=== PATIENT | female | born 1955 | race Caucasian/White ===

== ENCOUNTER 2019-07-14 20:12 | Emergency (ER) | payer OTHER ==
--- NOTE | 2019-07-14 20:45 | EDM.PDOC ---
ED HPI GENERAL MEDICAL PROBLEM - General Chief Complaint: Gastrointestinal Problem Stated Complaint: RECTAL ISSUE Time Seen by Provider: 07/14/19 20:45 Source of Information: Reports: Patient History Limitations: Reports: No Limitations - History of Present Illness INITIAL COMMENTS - FREE TEXT/NARRATIVE: pt arrived stating that she is having marked rectal spasm. She is feeling pressure and feeling like she has a mass. She is having incontinent stool. She has incontinence pads on at this time. Onset: Today, Other ( this started this am and some of the rectal spasms have been very severe. She has not had any fabiana blood. ) Duration: Hour(s): Location: Reports: Other (pt is having marked rectal pressure. ) Associated Symptoms: Reports: No Other Symptoms - Related Data Allergies Allergy/AdvReac Type Severity Reaction Status Date / Time codeine Allergy Cannot Verified 08/08/13 14:11 Remember erythromycin base Allergy Cannot Verified 08/08/13 14:11 [Erythromycin Base] Remember lisinopril Allergy Cannot Verified 08/08/13 14:11 Remember Home Meds: Home Meds Aspirin Ec 81mg Tablet, Take 1 Tab By Mouth One Time A Day 81 mg PO DAILY [History] Diclofonac 1% Topical, Apply 4 G Topically Four Times A Day 1 dose TOP ASDIRECTED 08/08/13 [History] Famotidine, 20mg, Tablet, Take 20 Mg By Mouth Two Times A Day 20 mg PO DAILY [History] Loratadine 10 Mg Tablet, Take 1 Tab By Mouth One Time A Day 10 mg PO DAILY 08/08 [History] Pirbutorol 200mcg/Inh Inhaler, Inhale 2 Puffs Into The Lungs 4 Times A Day As Needed 1 puff IN ASDIRECTED 08/08/13 [History] Selenium Sulfide 1% Lotn, Apply Topically One Time A Day 1 dose TOP ASDIRECTED 08/08/13 [History] Singulair 10 Mg Tablet, Take One Tablet By Mouth Every Night At Bedtime 1 puff IN ASDIRECTED 08/08/13 [History] Triamcinolone Acetonide 0.1% Cream, Apply To Affected Areas As Directed 1 dose TOP ASDIRECTED 08/08/13 [History] Chlorthalidone 25 mg PO DAILY 07/14/19 [History] Cholecalciferol (Vitamin D3) [Vitamin D] 5,000 unit PO DAILY 07/14/19 [History] Fish Oil/[place]-3 Fatty Acids [Fish Oil 1,000 MG] 1 each PO DAILY 07/14/19 [ History] Fluticasone/Salmeterol [Advair 250-50 Diskus] 1 puff IN ASDIRECTED 07/14/19 [ History] Levothyroxine 40 mg PO DAILY 07/14/19 [History] Lisdexamfetamine [Vyvanse] 30 gm PO DAILY 07/14/19 [History] Losartan [Cozaar] 25 mg PO DAILY 07/14/19 [History] Naltrexone 25 mg PO DAILY 07/14/19 [History] ED ROS GENERAL - Review of Systems Review Of Systems: See Below Constitutional: Reports: No Symptoms HEENT: Reports: No Symptoms Respiratory: Reports: No Symptoms Cardiovascular: Reports: No Symptoms Endocrine: Reports: No Symptoms GI/Abdominal: Reports: Constipation, Other (pt had last formed bm yesterday. ) : Reports: No Symptoms Musculoskeletal: Reports: No Symptoms Skin: Reports: No Symptoms Neurological: Reports: No Symptoms Psychiatric: Reports: Other (pt is uncomfortable. ) ED EXAM, GI/ABD - Physical Exam Exam: See Below Text/Narrative:: pt arrived with rectal pressure and she feels like there is a mass. She has like spasms in the rectum. Exam Limited By: No Limitations General Appearance: Alert, Anxious, Moderate Distress Ears: Normal TMs Nose: Normal Inspection Throat/Mouth: Normal Inspection Head: Atraumatic Neck: Normal Inspection Respiratory/Chest: No Respiratory Distress GI/Abdominal Exam: Soft, Non-Tender (Female) Exam: Deferred Rectal (Female) Exam: Other (pt has a large impaction present. pt has a red rash above the rectum which may be yeast. ) Back Exam: Normal Inspection Extremities: Normal Inspection Neurological: Alert, Oriented, Normal Cognition Psychiatric: Anxious Course - Vital Signs Last Recorded V/S: Last Vital Signs Temp 36.6 C 07/14/19 20:51 Pulse 79 07/14/19 20:51 Resp 16 07/14/19 20:51 BP 157/67 H 07/14/19 20:51 Pulse Ox 96 07/14/19 20:51 - Orders/Labs/Meds Orders: Active Orders 24 hr Category Date Time Status Enema [RC] ASDIRECTED Care 07/14/19 21:02 Active Enema [RC] ASDIRECTED Care 07/14/19 22:45 Active Meds: Medications Discontinued Medications Generic Name Dose Route Start Last Admin Trade Name Oliver PRN Reason Stop Dose Admin Bisacodyl 10 mg 07/14/19 21:01 07/14/19 21:06 Dulcolax RECTAL 07/14/19 21:02 10 mg ONETIME ONE Administration Magnesium Citrate 296 ml 07/14/19 22:16 07/14/19 23:24 Citrate Of Magnesia PO 07/14/19 22:17 296 ml ONETIME ONE Administration - Re-Assessments/Exams Free Text/Narrative Re-Assessment/Exam: 07/15/19 00:19 pt was given a ducolax supp. She was given a soaps suds ensma and had good results with a large stool. She still felt like she had retained stool. She was given a bottle of mag citrate and a seconmd enema. Departure - Departure Time of Disposition: 00:20 Disposition: Home, Self-Care 01 Condition: Fair Clinical Impression: Fecal impaction - Discharge Information Referrals: Akbar Sinha MD [Primary Care Provider] - Forms: ED Department Discharge Care Plan Goals: push fluids, increase fiber in diet, miralax as needed, prunes daily, rtc if problems. Consider a colonoscopy - My Orders Last 24 Hours: My Active Orders 07/14/19 21:02 Enema [RC] ASDIRECTED 07/14/19 22:45 Enema [RC] ASDIRECTED - Assessment/Plan Last 24 Hours: My Active Orders 07/14/19 21:02 Enema [RC] ASDIRECTED 07/14/19 22:45 Enema [RC] ASDIRECTED
[2019-07-14] MEDS ORDERED: Bisacodyl 10 MG Supp RECTAL ONE (21:01)
[2019-07-14] MEDS ORDERED: Magnesium Citrate Solution 296 ML Bottle PO ONE (22:16)
== END 2019-07-15 01:12 | disposition home or self-care (01) ==
LOC: JP.ED 20:12
DX: K56.41 Fecal impaction (principal); Z88.1 Allergy status to other antibiotic agents; Z88.5 Allergy status to narcotic agent; Z88.8 Allergy status to other drugs, medicaments and biological substances
CPT/HCPCS: 99282; A9270

== ENCOUNTER 2020-07-05 12:44 | Emergency (ER) | payer OTHER ==
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
== END 2020-07-05 13:38 | disposition home or self-care (01) ==
LOC: JP.ED 12:44
DX: S40.012A Contusion of left shoulder, initial encounter (principal); H93.8X2 Other specified disorders of left ear; I10 Essential (primary) hypertension; J45.909 Unspecified asthma, uncomplicated; E66.9 Obesity, unspecified; Z88.8 Allergy status to other drugs, medicaments and biological substances; Z88.5 Allergy status to narcotic agent; Z88.1 Allergy status to other antibiotic agents; Z68.43 Body mass index [BMI] 50.0-59.9, adult; Z79.899 Other long term (current) drug therapy; Z79.82 Long term (current) use of aspirin; V49.9XXA Car occupant (driver) (passenger) injured in unspecified traffic accident, initial encounter
CPT/HCPCS: 99284